=== PATIENT | male | born 1955 | race Caucasian/White ===

== ENCOUNTER 2019-01-27 10:26 | Emergency (ER) | payer MEDICARE, OTHER ==
[~2019-01-27] VITALS: Ht 188 cm; Wt 91.2 kg
--- NOTE | 2019-01-27 10:40 | NUR ---
FEVER LAST FRIDAY, DIARRHEA SINCE FRIDAY, WS SENT FROM URGENT CARE. PATIENT A/OX4, BREATHING EVEN AND UNLABORED, NO SOB NOTED. WAITING FOR MD HENDRIX.
[2019-01-27] MEDS ORDERED: DICYCLOMINE HCL 10 MG CAPSULE PO ONE ×2 (10:56→11:00)
[2019-01-27] MEDS ORDERED: IV NS 0.9% 1,000 ML BAG IV ONE (11:00)
[2019-01-27 11:15] LABS: CALCIUM, SERUM 8.9 mg/dL (8.5-10.1); CREATININE 1.1 mg/dL (0.6-1.3); POTASSIUM 3.8 mmol/L (3.5-5.1)
[2019-01-27 11:54] VITALS: BP 130/82
--- NOTE | 2019-01-27 11:54 | NUR ---
IV removed. Catheter intact and site benign. Pressure and 4x4 applied to site. No bleeding noted. Patient discharged to home in stable condition. Written and verbal after care instructions given. Patient verbalizes understanding of instruction.
== END 2019-01-27 11:55 | disposition home or self-care (01) ==
LOC: ER 10:27
DX: A08.4 Viral intestinal infection, unspecified (principal); R19.7 Diarrhea, unspecified; E86.0 Dehydration; I10 Essential (primary) hypertension; E03.9 Hypothyroidism, unspecified
CPT/HCPCS: 36415; 80048; 96360; 99283; J7030

== ENCOUNTER 2019-04-15 01:38 | Emergency (ER) | payer MEDICARE, BC ==
[~2019-04-15] VITALS: Ht 188 cm; Wt 96.2 kg
[2019-04-15 01:50] VITALS: BP 176/98
--- NOTE | 2019-04-15 01:50 | NUR ---
PT C/C R SIDE BACK RIB CAGE PAIN WITH HEMATOMA S/P GLF 2WKS AGO, PT WAS SEEN AT URGENT CARE WITH NEGATIVE XRAYS. DIAGNOSED WITH ABD SHINGLES TODAY. PT AOX4. RESP EVEN AND UNLABORED. PT ON MONITOR IN BED 3. WILL CONTINUE TO MONITOR.
[2019-04-15] MEDS ORDERED: ONDANSETRON 4 MG TAB.RAPDIS SL ONE (02:00)
[2019-04-15] MEDS ORDERED: MORPHINE SULFATE INJ 4 MG/ML DISP.SYRIN IM ONE (02:00)
[2019-04-15] MEDS ORDERED: MORPHINE SULFATE INJ 4 MG/ML DISP.SYRIN ONE (02:26)
[2019-04-15] MEDS ORDERED: ONDANSETRON 4 MG TAB.RAPDIS ONE (02:26)
--- NOTE | 2019-04-15 02:30 | NUR ---
PT RETURNED FROM RADIOLOGY VIA WHEELCHAIR
--- NOTE | 2019-04-15 03:42 | NUR ---
Patient discharged to home in stable condition. Written and verbal after care instructions given. Patient verbalizes understanding of instruction.
== END 2019-04-15 03:47 | disposition home or self-care (01) ==
LOC: ER 01:38
DX: S22.32XA Fracture of one rib, left side, initial encounter for closed fracture (principal); I10 Essential (primary) hypertension; E03.9 Hypothyroidism, unspecified; W18.39XA Other fall on same level, initial encounter; Y93.89 Activity, other specified; Y92.89 Other specified places as the place of occurrence of the external cause; Y99.8 Other external cause status
CPT/HCPCS: 72128; 74176; 96372; 99284; J2270; Q0162

== ENCOUNTER 2021-03-07 11:03 | Outpatient (CLI) | payer MEDICARE, BC | END 2021-03-07 23:59 | disposition home or self-care (01) | LOC: RAD 11:03 | PROVIDERS: ATTEND Neurological Surgery | DX: M47.812 Spondylosis without myelopathy or radiculopathy, cervical region (principal) | CPT/HCPCS: 72040-TC ==

== ENCOUNTER 2023-05-04 14:50 | Emergency (ER) | payer MEDICARE, BC ==
[~2023-05-04] VITALS: Ht 188 cm; Wt 98.9 kg
[2023-05-04] MEDS ORDERED: KETOROLAC TROMETHAMINE INJ 30 MG/ML VIAL IM ONE (15:30)
[2023-05-04] MEDS ORDERED: CYCLOBENZAPRINE 10 MG TABLET PO ONE (15:30)
[2023-05-04] MEDS ORDERED: KETOROLAC TROMETHAMINE 15 MG/ML VIAL ONE (15:34)
[2023-05-04] MEDS ORDERED: CYCLOBENZAPRINE 10 MG TABLET ONE ×2 (15:35→15:37)
[2023-05-04] MEDS ORDERED: IBUP-1955 PO (16:02)
[2023-05-04] MEDS ORDERED: CYCL5TAB PO (16:02)
[2023-05-04 16:08] VITALS: BP 142/84; TEMP 98.7; O2SAT 100
== END 2023-05-04 16:09 | disposition home or self-care (01) ==
LOC: ER 15:03
DX: M54.6 Pain in thoracic spine (principal); I10 Essential (primary) hypertension; E03.9 Hypothyroidism, unspecified; Z79.899 Other long term (current) drug therapy; Z60.2 Problems related to living alone
CPT/HCPCS: 99283; 96372; J1885